=== PATIENT | male | born 1955 | race Caucasian/White ===

== ENCOUNTER 2025-01-18 09:57 | Outpatient (CLI) | payer MEDICARE, BC, SELFPAY | END 2025-01-18 09:58 | disposition home or self-care (01) | PROVIDERS: Visit Provider Family Medicine | DX: I10 Essential (primary) hypertension (principal); N52.9 Male erectile dysfunction, unspecified; N40.0 Benign prostatic hyperplasia without lower urinary tract symptoms; R53.83 Other fatigue; Z13.21 Encounter for screening for nutritional disorder; Z13.29 Encounter for screening for other suspected endocrine disorder; Z12.5 Encounter for screening for malignant neoplasm of prostate; Z13.220 Encounter for screening for lipoid disorders | CPT/HCPCS: 80048; 80061; 82607; 84153; 84443 ==